=== PATIENT | female | born 1955 | race Caucasian/White ===

== ENCOUNTER → 2017-05-13 16:05 | Outpatient (CLI) | payer BC ==
[~2017-05-13 16:05] MED LIST: K-TAB10 MEQ PO; SYNTHROID25 MCG PO; TENORMIN50 MG PO; ZITHROMAX250 MG PO; ZOLOFT100 MG PO
[2017-05-17 10:41] VITALS: BMI 25.2
== END | disposition home or self-care (01) ==
LOC: D.CT 16:05
DX: R93.8 Abnormal findings on diagnostic imaging of other specified body structures (principal)

== ENCOUNTER 2017-05-17 09:30 | Inpatient (IN) | payer BC ==
[~2017-05-17] VITALS: Ht 172.7 cm; Wt 75.5 kg
--- NOTE | ~2017-05-17 | PRO ---
PATIENT:BRANDI MONTERO MEDICAL RECORD: [id number] : 55 LOCATION:D[facility] ADMISSION DATE: 05/17/17 PROCEDURE PERFORMED BY: LULU CARDONA MD DATE OF PROCEDURE: 05/18/2017 PROCEDURE: Fiberoptic bronchoscopy. INDICATION: Ms. Kirill Vences is a 61-year-old female. She was admitted with pneumonia with bilateral miliary shadows. Fiberoptic bronchoscopy was carried out to obtain the specimen for culture and sensitivity. PROCEDURE IN DETAIL: After obtaining the conscious sedation, the fiberoptic bronchoscope was easily passed through the mouth. The epiglottis was normal. The vocal cords were normal, moving equally on phonation. The pyriform sinuses were normal. The main trachea was normal. The pavithra was sharp. The right main bronchus subsegment to the right upper lobe, right lower lobe and right middle lobe within normal range. No endobronchial lesion was seen. The left main bronchus subsegment to the left upper lobe lingula and left lower lobe within normal range. No endobronchial lesion was seen. There was no yellowish secretion. No endobronchial lesion was seen bilaterally. Specimen washing was obtained and sent for routine culture and sensitivity, AFB and fungus, and cytology. TRANSINT:[id number] Voice Confirmation ID: [id number] DOCUMENT ID: [id number] LULU CARDONA MD CC: RAISSA MITTAL MD [id number] DICTATION DATE: 05/18/17 1122 CROSSING GUARD: 05/18/17 1135 ADM IN [id number] [place] [address]
--- NOTE | ~2017-05-17 | CN ---
PATIENT NAME:BRANDI MONTERO MEDICAL RECORD: [id number] : 55 LOCATION:D[facility] ADMIT DATE: 05/17/17 ACCOUNT: [id number] CONSULTING PHYSICIAN: LULU CARDONA MD REFERRING PHYSICIAN: SIGIFREDO BARON MD DATE OF CONSULTATION: 05/17/2017 CONSULT REQUESTING PHYSICIAN: Sigifredo Baron MD. REASON FOR CONSULTATION: Miliary shadow and interstitial pneumonitis. HISTORY OF PRESENT ILLNESS: Ms. Roy is a 61-year-old female who is sick since January. She has a cough since then and when she has cough, she has a pleuritic type of chest pain on the right side. There is no wheezing. The cough is productive with very little sputum, mostly it is a dry cough. Denies any fever and chills. She has some fatigue. Her appetite is good. There is no weight loss. She does have some night sweats, which she correlate with her postmenopausal and it is not different than before. There is no hemoptysis. The patient denies any exposure to TB. She lived in [place], [place] in the 80s, but the patient does not recall any infection over there and she does not recall any abnormal chest x-ray in the past. REVIEW OF SYSTEMS: HEENT: There is no sinus congestion. CONSTITUTIONAL: She is fatigued. RESPIRATORY: As in history of present illness. CARDIOVASCULAR: Negative. GASTROINTESTINAL: Negative. GENITOURINARY: Negative. Other review of systems is negative. PAST MEDICAL HISTORY: 1. Hypothyroidism. 2. Depression. PAST SURGICAL HISTORY: Nonsignificant. ALLERGIES: There are no known drug allergies. PRESENT MEDICATIONS: She is on levothyroxine, Zoloft and atenolol. PERSONAL AND SOCIAL HISTORY: The patient did smoke for 15-16 years, more than 20 years ago. She is a nondrinker. FAMILY HISTORY: Noncontributory. PHYSICAL EXAMINATION: GENERAL: Now, the patient is lying comfortably in bed. She is not in acute distress. VITAL SIGNS: The blood pressure is 126/78, pulse is 68, respirations 16, temperature 97.9 and SPO2 is 96% on room air. HEENT: Conjunctivae is pink. Sclerae nonicteric. NECK: Neck is supple. No JVD. No lymphadenopathy. No cervical or axillary lymphadenopathy. CHEST: There are right-sided crackles. No wheezing. CONSULT REPORT [id number] BRANDI MONTERO HEART: Rhythm regular, normal sound, no murmur. ABDOMEN: Soft. Bowel sounds present. No hepatosplenomegaly. RECTAL: Deferred. EXTREMITIES: No cyanosis, no clubbing and no pedal edema. SKIN: The skin is warm, normal turgor. CENTRAL NERVOUS SYSTEM: The patient is awake and alert. There are no obvious cranial nerve abnormalities. The gait was not tested. IMAGING: CT scan of the chest, there are miliary shadows bilaterally. There is also increased interstitial marking. There is a small right pleural effusion. OTHER LABORATORY DATA: CBC: The WBC is 6.2, hemoglobin 13.9, hematocrit 40.1 and the platelet count 370. Chemistry: Sodium 136, potassium 3.9, chloride 101, BUN is 15 and creatinine 0.7. IMPRESSION: 1. Bilateral pneumonia, most likely atypical pneumonia with miliary shadows, rule out tuberculosis, rule out fungal infection, rule out sarcoidosis, rule out connective tissue disorder. 2. Chronic cough secondary to above. 3. Right-sided pleural effusion. 4. Pleurisy. 5. Ex-smoker. 6. Hypothyroidism. RECOMMENDATION: 1. Continue Zithromax and Rocephin. 2. I will check the fungal antibody panel. Check SHAI, rheumatoid factor, S-YANIV level, ANCA level, check the ESR, check a QuantiFERON gold test for the TB. 3. The PPD has been put and that will be followed. We will proceed with fiberoptic bronchoscopy tomorrow. Dr. Baron, thank you for involving me in the care of Ms. Roy. I will also consult Dr. Delores Meza. TRANSINT:[id number] Voice Confirmation ID: [id number] DOCUMENT ID: [id number] LULU CARDONA MD CC: [id number] DICTATION DATE: 05/17/171524 DEVOPS: 05/17/172019 ADM IN [place] [id number] [place] [address]
[2017-05-17] MEDS ORDERED: ZITHROMAX250 MG PO (10:33)
[2017-05-17] MEDS ORDERED: K-TAB10 MEQ PO (10:33)
[2017-05-17] MEDS ORDERED: SYNTHROID25 MCG PO (10:33)
[2017-05-17] MEDS ORDERED: TENORMIN50 MG PO (10:34)
[2017-05-17] MEDS ORDERED: ZOLOFT100 MG PO (10:34)
[2017-05-17 10:41] VITALS: BP 126/62; Ht 172.7 cm; Wt 75.5 kg
[2017-05-17 11:41] LABS: ALBUMIN 3.9 g/dL (3.4-5.0); ALKALINE PHOSPHATASE 170 U/L (46-116); ALT (SGPT) 33 U/L (10-68); CALC OSMOLALITY 272 mosm/kg (275-300); CALCIUM 9.4 mg/dL (8.5-10.1); CARBON DIOXIDE 21.5 mmol/L (21.0-32.0); CHLORIDE - SERUM 101 mmol/L (98-107); CREATININE - SERUM 0.7 mg/dL (0.6-1.3); GLUCOSE 93 mg/dL (74-106); POTASSIUM - SERUM 3.9 mmol/L (3.5-5.1); PROTEIN - SERUM 7.5 g/dL (6.4-8.2); SODIUM 136 mmol/L (136-145); UREA NITROGEN 15 mg/dL (7-18); eGFR NON AFRICAN AMERICAN 90 mL/min (90-120)
[2017-05-17 11:47] LABS: BASOPHILS 0.5 % (0-2); EOSINOPHILS 5.5 % (0-7); HEMATOCRIT 40.1 % (36.0-48.0); HEMOGLOBIN 13.9 g/dL (12-16); IMMATURE GRANULOCYTES 0.3 % (0-5); LYMPHOCYTES 37.2 % (15-50); MCH 31.7 pg (26.0-34.0); MCHC 34.7 g/dL (31.0-37.0); MCV 91.6 fL (80.0-100.0); MONOCYTES 9.4 % (2-11); NEUTROPHILS 47.1 % (40-80); PLATELET COUNT 370 10x3/uL (130-400); RBC 4.38 10x6/uL (4.00-5.40); WBC 6.2 10x3/uL (4.8-10.8)
[2017-05-17 12:01] LABS: APPEARANCE CLEAR (CLEAR); BILIRUBIN NEGATIVE (NEGATIVE); COLOR YELLOW (YELLOW); GLUCOSE NEGATIVE (NEGATIVE); KETONE NEGATIVE (NEGATIVE); LEUKOCYTE ESTERASE 1+ (NEGATIVE); NITRITE NEGATIVE (NEGATIVE); PROTEIN NEGATIVE (NEGATIVE); UROBILINOGEN NORMAL (NORMAL)
[2017-05-17 12:03] LABS: BACTERIA FEW /hpf (NONE SEEN); EPITHELIAL CELLS 0-5 /hpf (0-5); MUCUS <1+ /lpf (NONE SEEN); WHITE CELLS - URINE 0-5 /hpf (0-5)
[2017-05-17 12:44] VITALS: BP 126/78
[2017-05-17 16:24] LABS: BASOPHILS 0.7 % (0-2); EOSINOPHILS 5.4 % (0-7); HEMATOCRIT 37.4 % (36.0-48.0); HEMOGLOBIN 12.9 g/dL (12-16); IMMATURE GRANULOCYTES 0.3 % (0-5); LYMPHOCYTES 36.5 % (15-50); MCH 31.9 pg (26.0-34.0); MCHC 34.5 g/dL (31.0-37.0); MCV 92.3 fL (80.0-100.0); MEAN PLATELET VOLUME 9.5 fL (7.4-10.4); NEUTROPHILS 46.1 % (40-80); PLATELET COUNT 314 10x3/uL (130-400); RBC 4.05 10x6/uL (4.00-5.40); RDW 11.9 % (11.5-14.5); WBC 6.9 10x3/uL (4.8-10.8)
[2017-05-17 16:28] VITALS: BP 128/69
[2017-05-17 16:57] LABS: APTT 34.7 SECONDS (22.8-39.4); INR 1.03 (0.85-1.17); PROTIME 13.3 SECONDS (11.6-15.0)
[2017-05-17 18:14] LABS: ERYTHROCYTE SEDIMENTATION RATE 15 mm/hr (0-30)
--- NOTE | 2017-05-17 18:50 | HP ---
PATIENT: BRANDI MONTERO MEDICAL RECORD: [id number] ACCOUNT: [id number] LOCATION:D.[facility] : 55 ADMISSION DATE: 05/17/17 HISTORY AND PHYSICAL EXAMINATION REASON FOR ADMISSION: Fatigue and pleuritic chest pain. HISTORY OF PRESENT ILLNESS: The patient is a 61-year-old female, who noticed approximately 4 months ago, onset of a sharp pain in her right lateral chest wall. She assumed it was pleurisy, had no other symptoms. This had lasted for 4 months. More recently, she had been somewhat fatigued and not short of breath, but if she coughs, she will have increasing pain. She finally came to the office last week. Exam there showed a normal chest exam except for tenderness along her right 9th and 10th costal ribs in the axillary line. A chest x-ray showed a diffuse biliary pattern, interstitial pneumonitis with some fluid in the right upper lobe. A CT scan was ordered of the chest confirming above findings. I spoke with Dr. Keenan and he recommended starting Zithromax, placing a PPD. She is weak and we cannot place a PPD for reading until today. Over the weekend, she has not felt any difference. She denies fever, productive cough, hemoptysis or diarrhea. She was direct admitted to the hospital today because of no improvement in symptoms after diagnostic bronchoscopy and treatment of atypical pneumonia. PAST MEDICAL HISTORY: Postmenopausal, 2 para 2, hypothyroidism, depression palpitations. PAST SURGICAL HISTORY: Negative. SOCIAL HISTORY: Occasional alcohol consumption. Denies current smoking; former smoker. Remarried to her previous . 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 FAMILY HISTORY: Her father was a dentist, he had hypertension. Mother at 63 of CHF and hypertension. Paternal grandfather with colon cancer and COPD, from [place]. Maternal grandfather with leukemia. PAST SURGICAL HISTORY: Negative. HOME MEDICATIONS: Levothyroxine 0.025 mg a.c. breakfast daily, atenolol 50 mg a day, sertraline 100 mg tablets 1-1/2 tablets daily. REVIEW OF SYSTEMS: CONSTITUTIONAL: No fever, fatigue, or weight change. HEENT: No recent visual change, sinus congestion, sore throat or hearing difficulty. RESPIRATORY: Denies SOB or cough, but says she has sharp pain in her right chest when she takes a deep breath or coughs. Denies wheezing or hemoptysis. CARDIAC: No exertional chest pain, claudication or edema. GASTROINTESTINAL: No nausea, vomiting, change in stools or blood per rectum. GENITOURINARY: No dysuria. GYNECOLOGICAL: No vaginal bleeding. 2. ENDOCRINE: Denies polyuria, polydipsia, heat or cold intolerance. NEUROLOGIC: No history of stroke, TIA or vascular headaches. INTEGUMENT: No rash or itching. PSYCHIATRIC: Admits to depression in the past, stable on meds. No history of HISTORY AND PHYSICAL [id number] KVNG SOLOMONBRANDI SAENZ suicidal thoughts. PHYSICAL EXAMINATION: VITAL SIGNS: Temperature 97.7 Fahrenheit orally, pulse 68 and regular, respirations are 16, blood pressure 126/70 with a sat 96% on room air. GENERAL: Alert and oriented. HEENT: Normocephalic. Eyes are clear. Oropharynx unremarkable. NECK: Supple, without bruits or masses. CHEST: Clear without wheeze or rales. She is acutely tender in the mid axillary line on the right ribs 9 and 10 to palpation. No crepitus or subQ emphysema is noted. BREASTS: Symmetrical. ABDOMEN: Soft and nontender. PELVIC: Deferred. RECTAL: Deferred. EXTREMITIES: No CC&E. INTEGUMENT: No rash or petechiae. LYMPHATIC SYSTEM: No adenopathy noted. LABORATORY DATA: White count 6200, H&H of 13.9 and 40.1, platelet count is 370,000. Urine shows 10-25 red cells, 1+ leukocyte esterase, few bacteria. BMP is normal. Alkaline phosphatase is elevated at 170, rest of liver function is normal. Office chest x-ray shows interstitial pneumonitis, appearance worse in right upper lobe. CT chest on May 13 showed miliary lung nodule pattern with more confluent consolidation in the right upper lobe. No lymphadenopathy is noted. Trace right effusion is noted. ASSESSMENT: This is a typical miliary community-acquired pneumonia, right rib pain, etiology unknown; elevated alkaline phosphatase, etiology unknown, may be bone related, family history of colon cancer, personal history of depression, recent diagnosis of hypothyroidism. PLAN: We will admit her to the hospital for pulmonary consultation, cultures of blood and sputum. A PPD was placed in her right forearm today in my office. Also, obtain mammograms. Further workup pending clinical course. TRANSINT:[id number] Voice Confirmation ID: [id number] DOCUMENT ID: [id number] RAISSA MITTAL MD at 1850 CC: [id number] DICTATION DATE: 05/17/17 1258 SENIOR ENVIRONMENTAL CONSULTANT: 05/17/17 1419 ADM IN [id number] [place] [address]
[2017-05-17 20:00] VITALS: BP 119/73
[2017-05-18 04:00] VITALS: BP 112/73
[2017-05-18 05:49] LABS: BASOPHILS 0.4 % (0-2); EOSINOPHILS 6.9 % (0-7); HEMATOCRIT 37.1 % (36.0-48.0); HEMOGLOBIN 12.7 g/dL (12-16); IMMATURE GRANULOCYTES 0.4 % (0-5); LYMPHOCYTES 40.8 % (15-50); MCH 31.5 pg (26.0-34.0); MCHC 34.2 g/dL (31.0-37.0); MCV 92.1 fL (80.0-100.0); MEAN PLATELET VOLUME 9.3 fL (7.4-10.4); MONOCYTES 10.2 % (2-11); NEUTROPHILS 41.3 % (40-80); PLATELET COUNT 305 10x3/uL (130-400); RBC 4.03 10x6/uL (4.00-5.40); WBC 5.4 10x3/uL (4.8-10.8)
[2017-05-18 07:02] LABS: T4 THYROXIN - FREE 1.08 ng/dL (0.76-1.46); THYROID STIMULATING HORMONE 3.57 uIU/mL (0.36-3.74)
[2017-05-18 08:19] VITALS: BP 108/70
[2017-05-18 10:17] LABS: ANA REFLEX - DIRECT Negative (Negative)
[2017-05-18 12:00] VITALS: BP 116/73
[2017-05-18 16:17] VITALS: BP 100/66
[2017-05-18 20:00] VITALS: BP 126/72
[2017-05-19 09:39] VITALS: BP 124/74
[2017-05-19 11:16] LABS: ANGIOTENSIN CONVERTING ENZYME 27 U/L (14-82)
[2017-05-19 12:57] VITALS: BP 130/80
[2017-05-19 16:12] LABS: ANCA - ANTIMYELOPEROXIDASE <9.0 U/mL (0.0-9.0); ANCA - ANTIPROTEINASE 3 <3.5 U/mL (0.0-3.5); ANCA - ATYPICAL <1:20 titer (Neg:<1:20); ANCA - CYTOPLASMIC <1:20 titer (Neg:<1:20); ANCA - PERINUCLEAR <1:20 titer (Neg:<1:20)
[2017-05-19 16:30] VITALS: BP 136/74
[2017-05-19 20:00] VITALS: BP 137/72
[2017-05-19 20:09] LABS: ACID FAST SMEAR Negative (()); AFB SPECIMEN PROCESSING Concentration (())
[2017-05-20] VITALS: BP 129/79
[2017-05-20 04:00] VITALS: BP 137/87
[2017-05-20 09:31] VITALS: BP 148/83
[2017-05-20 12:46] VITALS: BP 143/94
[2017-05-20 14:20] LABS: CRYPTOCOCCUS AG - SERUM Negative (Negative)
[2017-05-20 14:20] LABS: FUNGUS STAIN Final report (())
[2017-05-20 16:00] VITALS: BP 140/87
[2017-05-20 20:00] VITALS: BP 121/77
[2017-05-21 04:00] VITALS: BP 134/87
[2017-05-21 07:06] LABS: BASOPHILS 0.7 % (0-2); EOSINOPHILS 9.5 % (0-7); HEMATOCRIT 38.4 % (36.0-48.0); HEMOGLOBIN 12.8 g/dL (12-16); IMMATURE GRANULOCYTES 0.3 % (0-5); LYMPHOCYTES 38.5 % (15-50); MCH 31.1 pg (26.0-34.0); MCHC 33.3 g/dL (31.0-37.0); MCV 93.4 fL (80.0-100.0); MEAN PLATELET VOLUME 9.3 fL (7.4-10.4); MONOCYTES 11.4 % (2-11); NEUTROPHILS 39.6 % (40-80); PLATELET COUNT 366 10x3/uL (130-400); RBC 4.11 10x6/uL (4.00-5.40)
[2017-05-21 07:17] LABS: CALC OSMOLALITY 279 mosm/kg (275-300); CALCIUM 9.5 mg/dL (8.5-10.1); CARBON DIOXIDE 26.8 mmol/L (21.0-32.0); CHLORIDE - SERUM 106 mmol/L (98-107); CREATININE - SERUM 0.7 mg/dL (0.6-1.3); GLUCOSE 91 mg/dL (74-106); POTASSIUM - SERUM 4.2 mmol/L (3.5-5.1); SODIUM 140 mmol/L (136-145); UREA NITROGEN 14 mg/dL (7-18); eGFR NON AFRICAN AMERICAN 90 mL/min (90-120)
[2017-05-21 08:00] VITALS: BP 128/70
[2017-05-21] MEDS ORDERED: FLORAJEN3 CAPS460 MG PO (09:31)
[2017-05-21] MEDS ORDERED: HYDROCODON-ACE1 EAC7 PO (09:31)
[2017-05-21] MEDS ORDERED: DOXYCYCLINE HY100 M2 PO (09:32)
[2017-05-21 15:10] LABS: FUNGAL - ASP FLAVUS Negative (Neg:<1:1); FUNGAL - ASP NIGER Negative (Neg:<1:1); FUNGAL - ASPER FUMIGATUS Negative (Neg:<1:1)
[2017-05-23 13:13] LABS: LEGIONELLA ANTIGEN - URINE Negative (Negative)
== END 2017-05-21 12:45 | disposition home or self-care (01) | DRG 194 ==
LOC: D.MS 09:30
PROVIDERS: Internal Medicine Pulmonary Disease; Student in an Organized Health Care Education/Training Program; ADMIT Family Medicine
PROC: 0BB78ZX Excision of Left Main Bronchus, Via Natural or Artificial Opening Endoscopic, Diagnostic (ICD-10-PCS; principal; 2017-05-17)
PROC: 0BB38ZX Excision of Right Main Bronchus, Via Natural or Artificial Opening Endoscopic, Diagnostic (ICD-10-PCS; 2017-05-17)
DX: J18.9 Pneumonia, unspecified organism (principal); J90 Pleural effusion, not elsewhere classified; E03.9 Hypothyroidism, unspecified; F32.9 Major depressive disorder, single episode, unspecified; Z87.891 Personal history of nicotine dependence; R31.9 Hematuria, unspecified

== ENCOUNTER → 2017-05-25 16:44 | Outpatient (CLI) | payer BC ==
[2017-05-17 10:41] VITALS: BMI 25.2
[~2017-05-25 16:44] MED LIST changes: +DOXYCYCLINE HY100 M2 PO; +FLORAJEN3 CAPS460 MG PO; +HYDROCODON-ACE1 EAC7 PO
== END | disposition home or self-care (01) ==
LOC: D.RAD 16:44
DX: J18.9 Pneumonia, unspecified organism (principal)

== ENCOUNTER 2017-06-10 07:31 | Day surgery (SDC) | payer BC ==
[2017-06-10 09:37] LABS: HEMATOCRIT 38.1 % (36.0-48.0); HEMOGLOBIN 13.1 g/dL (12-16); MCH 31.2 pg (26.0-34.0); MCHC 34.4 g/dL (31.0-37.0); MCV 90.7 fL (80.0-100.0); MEAN PLATELET VOLUME 9.7 fL (7.4-10.4); RBC 4.2 10x6/uL (4.00-5.40); RDW 11.7 % (11.5-14.5); WBC 4.7 10x3/uL (4.8-10.8)
[2017-06-10 10:05] VITALS: BMI 24.3
--- NOTE | 2017-06-10 12:23 | NUR ---
1219 BALLOON DILATION TO 54 SINHALA.
--- NOTE | 2017-06-10 13:02 | NUR ---
1250 BACK FROM EGD DILATION. RESP EVEN AND NONLABORED. ALERT AND TALKATIVE,C/L IN REACH.
--- NOTE | 2017-06-10 13:50 | NUR ---
IV DC WITH CATHER TIP INTACT
--- NOTE | 2017-06-13 16:05 | OP ---
PATIENT NAME: BRANDI MONTERO MEDICAL RECORD: [id number] :55 LOCATION:D.OPS ADMISSION DATE: SURGEON: AMANDA SALAZAR MD DATE OF OPERATION: 06/10/2017 PREOPERATIVE DIAGNOSES: 1. Nausea and vomiting. 2. Weight loss. 3. Gastroesophageal reflux. 4. Dysphagia. POSTOPERATIVE DIAGNOSES: 1. Nausea and vomiting. 2. Weight loss. 3. Gastroesophageal reflux. 4. Dysphagia. 5. Prepyloric ulcers. PROCEDURES: 1. Esophagogastroduodenoscopy with antral and distal esophageal biopsies. 2. Esophageal dilation with a through the catheter balloon to 54-Peruvian. SURGEON: Amanda Salazar MD KAYAK MAKER: None. BLOOD LOSS: Minimal. ANESTHESIA: IV sedation. The risks, possible complications, and alternatives to the procedure were explained to the patient. She elects to proceed. ENDOSCOPIC COURSE: The patient was conveyed to the endoscopy suite electively on 06/10/2017. IV sedation was induced by the anesthesia staff. A bite block was inserted. A gastroscope was inserted into the mouth. It was advanced easily into the hypopharynx. The esophagus was easily intubated as were the stomach and the duodenum. Upon withdrawal, retroflexed and angulus views were obtained. Antral biopsies were obtained. I then withdrew into the cardia of the stomach. I advanced it through the catheter balloon. I then sequentially dilated the entire length of the esophagus to 54-Peruvian. I then reintubated the patient's esophagus. Distal esophageal biopsies were obtained to rule out Diallo esophagus. The endoscope was then withdrawn under direct vision. The patient developed some laryngospasm postprocedurally. I will see her in the office in 2-3 weeks. I am going to dismiss her home on Nexium. TRANSINT:[id number] Voice Confirmation ID: [id number] DOCUMENT ID: [id number] OPERATIVE REPORT [id number] CALDERON RENETTAAMANDA VARGAS MD at 1605 CC: RAISSA MITTAL MD [id number] DICTATION DATE: 06/10/17 1230 FOREST AND CONSERVATION WORKER: 06/10/17 1328 [facility] 06/10/17 [facility] [address] [place] [address]
--- NOTE | 2017-06-13 16:05 | HP ---
PATIENT: BRANDI MONTERO MEDICAL RECORD: [id number] ACCOUNT: [id number] LOCATION:DiVolettaHEIDI : 55 ADMISSION DATE: 06/10/17 HISTORY AND PHYSICAL EXAMINATION CHIEF COMPLAINT: Here for endoscopy. HISTORY OF PRESENT ILLNESS: The patient has had nausea, vomiting, weight loss as well as gastroesophageal reflux. Since she cut gluten and milk out of her diet, her reflux has much improved. She gives some dysphagia type symptoms. I am going to plan for an esophageal dilation. The nausea and vomiting is only in the morning. This is a patient of Dr. Baron. HOME MEDICINES: Levothyroxine, potassium chloride, Zithromax as the patient is just getting over pneumonia, Tenormin, as well as Zoloft. FAMILY HISTORY: No known problems with sibling. SOCIAL HISTORY: Former tobacco use. PAST MEDICAL AND SURGICAL HISTORY: Bilateral carpal tunnel releases, hypertension, depression, angina, gastroesophageal reflux, hypothyroidism on replacement therapy. ALLERGIES: No known drug allergies. REVIEW OF SYSTEMS: Negative for CVA or seizures. Negative for renal disease or hepatitis. PHYSICAL EXAMINATION: GENERAL: The patient does not appear acutely ill. He does not appear chronically ill. The entire physical examination was performed in the presence of a female nurse. VITAL SIGNS: Reviewed. EARS: External ears appear normal. EYES: Extraocular movements are intact. NECK: Trachea is midline. CHEST: No intercostal retractions. PULMONARY: Nonlabored, no stridor. ABDOMEN: No peritonitis with movement. IMPRESSION: Nausea, vomiting, weight loss, and gastroesophageal reflux. PLAN: EGD with esophageal dilation. TRANSINT:[id number] Voice Confirmation ID: [id number] DOCUMENT ID: [id number] HISTORY AND PHYSICAL [id number] KVNG ELIANEGERRYBRANDI, AMANDA TELLO at 1605 CC: [id number] DICTATION DATE: 06/10/17 1210 CASTING MOLDER: 06/10/17 1234 [facility] 06/10/17 [address] [address] [place] [address]
[2017-07-05] MEDS ORDERED: NEXIUM40 MG PO (14:10)
[2017-08-02] MEDS ORDERED: FOLIC ACID1 MG PO (12:51)
[2017-08-03] MEDS ORDERED: ZOFRAN8 MG PO (07:56)
[2017-08-03] MEDS ORDERED: OXYCODONE HCL5 MG PO (10:11)
== END 2017-06-10 14:01 | disposition home or self-care (01) ==
LOC: D.OPS 07:31
PROVIDERS: Anesthesiology
DX: R11.2 Nausea with vomiting, unspecified (principal); R63.4 Abnormal weight loss; K21.9 Gastro-esophageal reflux disease without esophagitis; R13.10 Dysphagia, unspecified; K25.9 Gastric ulcer, unspecified as acute or chronic, without hemorrhage or perforation; I10 Essential (primary) hypertension; E03.9 Hypothyroidism, unspecified; I20.9 Angina pectoris, unspecified; Z01.812 Encounter for preprocedural laboratory examination

== ENCOUNTER 2017-07-06 05:00 | Inpatient (IN) | payer BC ==
[2017-07-05 15:17] LABS: HEMATOCRIT 36.2 % (36.0-48.0); HEMOGLOBIN 12.1 g/dL (12-16); MCH 30.3 pg (26.0-34.0); MCHC 33.4 g/dL (31.0-37.0); MCV 90.5 fL (80.0-100.0); MEAN PLATELET VOLUME 9.2 fL (7.4-10.4); RDW 11.8 % (11.5-14.5); WBC 7.4 10x3/uL (4.8-10.8)
[2017-07-05 15:26] LABS: APPEARANCE CLEAR (CLEAR); BILIRUBIN NEGATIVE (NEGATIVE); COLOR YELLOW (YELLOW); GLUCOSE NEGATIVE (NEGATIVE); KETONE NEGATIVE (NEGATIVE); NITRITE NEGATIVE (NEGATIVE); PROTEIN NEGATIVE (NEGATIVE); UROBILINOGEN NORMAL (NORMAL)
[2017-07-05 15:35] LABS: APTT 28.1 SECONDS (22.8-39.4); INR 0.99 (0.85-1.17)
[2017-07-05 15:48] LABS: ALBUMIN 3.5 g/dL (3.4-5.0); ALKALINE PHOSPHATASE 301 U/L (46-116); ALT (SGPT) 22 U/L (10-68); BILIRUBIN - TOTAL 0.33 mg/dL (0.2-1.3); CALC OSMOLALITY 275 mosm/kg (275-300); CALCIUM 8.9 mg/dL (8.5-10.1); CARBON DIOXIDE 24.2 mmol/L (21.0-32.0); CHLORIDE - SERUM 103 mmol/L (98-107); CREATININE - SERUM 0.7 mg/dL (0.6-1.3); GLUCOSE 92 mg/dL (74-106); POTASSIUM - SERUM 3.9 mmol/L (3.5-5.1); PROTEIN - SERUM 6.7 g/dL (6.4-8.2); SODIUM 138 mmol/L (136-145); UREA NITROGEN 13 mg/dL (7-18); eGFR NON AFRICAN AMERICAN 90 mL/min (90-120)
[2017-07-06] VITALS (53 sets, daily range): BP systolic 72–138; BP diastolic 39–96; BMI 23.9; BMI 26.8
[~2017-07-06 05:00] MED LIST changes: +NEXIUM40 MG PO
--- NOTE | 2017-07-06 10:30 | NUR ---
REC'D PT FROM OR, HOSPITAL STAFF AT THE BEDSIDE. LEFT RADIAL A-LINE, WRIST PROTECTOR INTACT, GOOD WAVE FORM. RIGHT SUBCLAVIAN CVL WITH FLUIDS INFUSING, SEE FLOW SHEET. RIGHT CHEST INCISION, CHEST TUBE TO 20CM SUCTION WITH BLOODY DRAINAGE, DRESSING CDI. GARIBAY CATHETER FREE OF KINKS TO GRAVITY WITH CLEAR YELLOW URINE RETURN. SHIFT ASSESSMENT COMPLETED, SEE FLOW SHEET. WILL CONTINUE TO MONITOR PT.
--- NOTE | 2017-07-06 10:45 | NUR ---
DR. MARKS AT THE BEDSIDE SPEAKING WITH FAMILY, ALL QUESTIONS ANSWERED, VSS, WILL CONTINUE TO MONITOR PT.
--- NOTE | 2017-07-06 11:18 | NUR ---
PT FAMILY AT THE BEDSIDE, ALL QUESTIONS ANSWERED, VSS, WILL CONTINUE TO MONITOR PT.
--- NOTE | 2017-07-06 11:30 | NUR ---
EPIDRUAL CHECKED, IN PLACE, 318 CC REMAINING IN EPIDURAL
--- NOTE | 2017-07-06 12:30 | NUR ---
EPIDURAL INTACT, NO SIGNS OF LEAKING, 311ML LEFT IN EPIDURAL
--- NOTE | 2017-07-06 13:12 | NUR ---
DR. MITTAL AT THE BEDSIDE, SPEAKING WITH FAMILY, ALL QUESTIONS ANSWERED, VSS, WILL CONTINUE TO MONITOR PT.
--- NOTE | 2017-07-06 13:30 | NUR ---
EPIDURAL INTACT, 304ML LEFT IN EPIDURAL
--- NOTE | 2017-07-06 14:30 | NUR ---
EPIDURAL INTACT, 297ML REMAINING IN EPIDURAL, WILL CONTINUE TO MONITOR PT.
--- NOTE | 2017-07-06 15:30 | NUR ---
EPIDURAL INTACT, 290ML REMAINING, WILL CONTINUE TO MONITOR PT.
--- NOTE | 2017-07-06 16:30 | NUR ---
EPIDURAL IN TACT, 283 ML REMAINING, WILL CONTINUE TO MONITOR PT.
--- NOTE | 2017-07-06 17:17 | NUR ---
PTS FAMILY AT THE BEDSIDE, ALL QUESTIONS ANSWERED, VSS, WILL CONTINUE TO MONITOR PT.
--- NOTE | 2017-07-06 17:30 | NUR ---
EPIDURAL INTACT, 271ML REMAINING, WILL CONTINUE TO MONITOR PT.
--- NOTE | 2017-07-06 19:30 | NUR ---
REC'D TO CARE, MOBILE HEALTH VEHICLE OPERATOR PER FLOWSHEET. PT AWAKE AND ORIENTED TO SITUATION. VSS. IVFS INFUSING TO R DLSC, DSG C/D/I - SEE FLOWSHEET, WILL TITRATE GTTS PER MD ORDER. LUNGS CTA. CM - NSR. R LATERAL CT, DSG INTACT, SEROUS DRAINAGE NOTED - TO 20CM SXN, NO AIR LEAK, LIGHT BLOODY DRAINAGE IN TUBE. CRITICORE GARIBAY PATENT. EPIDURAL LINE C/D/I, INFUSING AT 7ML/HR. PT REPORTS ADEQUATE PAIN RELIEF, ONLY C/O R SHOULDER DISCOMFORT. WARM PACK PROVIDED AND PT REPORTED RELIEF. AIR OVERLAY IN USE. ALARMS ON AND C/L IN REACH. ICE CHIPS AT BS.
--- NOTE | 2017-07-06 20:05 | NUR ---
SISTER AT BS VISITING. UPDATE GIVEN AND QUESTIONS ANSWERED.
--- NOTE | 2017-07-06 21:55 | NUR ---
CONT Q1H TURN, C&DB. PT COOPERATIVE, GOOD EFFORT, SPLINTING CHEST WITH PILLOW. ALARMS ON AND C/L IN REACH.
--- NOTE | 2017-07-06 23:29 | NUR ---
ABGS DONE. PT SAT UP IN BED WITH N/V. SMALL AMT EMESIS. ADMIN PRN ZOFRAN. PT REPORTED "FEELING BETTER" WITHIN A FEW MINUTES. ORAL CARE PROVIDED. PT LYING BACK DOWN NOW. ALARMS ON AND C/L IN REACH.
[2017-07-07] VITALS (94 sets, daily range): BP systolic 85–143; BP diastolic 35–74; BMI 24.4
--- NOTE | 2017-07-07 00:14 | NUR ---
REPOSITIONED UP IN BED, GOOD COUGH, NO NAUSEA AT THIS TIME.
--- NOTE | 2017-07-07 01:00 | NUR ---
URINE OUTPUT DECREASED AT THIS TIME. CVP 3. PLASMALYTE RUNNING AT 30 ML/HR. WILL CONTINUE TO MONITOR CLOSELY FOR CHANGES
--- NOTE | 2017-07-07 03:00 | NUR ---
REASSESSMENT PER FLOWSHEET, NO ACUTE CHANGES. PT AWAKENS EASILY, COOPERATIVE. VSS. WEANING KEYSHAWN TOLERATED. ALARMS ON AND C/L IN REACH.
--- NOTE | 2017-07-07 04:15 | NUR ---
WARM PACK TO R SHOULDER AREA PER PT REQUEST. FRESH ICE CHIPS AT BS. VSS.
--- NOTE | 2017-07-07 04:55 | NUR ---
ABGS RESULTED, WNL. PT REPOSITIONED UP IN BED TO R SIDE. GOOD COUGH. NO C/O AT THIS TIME.
[2017-07-07 06:31] LABS: HEMATOCRIT 32.5 % (36.0-48.0); HEMOGLOBIN 10.8 g/dL (12-16); MCH 30.1 pg (26.0-34.0); MCHC 33.2 g/dL (31.0-37.0); MCV 90.5 fL (80.0-100.0); MEAN PLATELET VOLUME 9.1 fL (7.4-10.4); RBC 3.59 10x6/uL (4.00-5.40); RDW 11.7 % (11.5-14.5)
[2017-07-07 07:04] LABS: ALBUMIN 2.7 g/dL (3.4-5.0); ALKALINE PHOSPHATASE 213 U/L (46-116); ALT (SGPT) 18 U/L (10-68); CALC OSMOLALITY 278 mosm/kg (275-300); CALCIUM 8.5 mg/dL (8.5-10.1); CARBON DIOXIDE 24.7 mmol/L (21.0-32.0); CHLORIDE - SERUM 106 mmol/L (98-107); GLUCOSE 110 mg/dL (74-106); POTASSIUM - SERUM 3.6 mmol/L (3.5-5.1); PROTEIN - SERUM 5.8 g/dL (6.4-8.2); SODIUM 139 mmol/L (136-145); UREA NITROGEN 13 mg/dL (7-18)
[2017-07-07 07:07] LABS: CREATININE - SERUM 0.5 mg/dL (0.6-1.3); eGFR NON AFRICAN AMERICAN > 90 mL/min (90-120)
--- NOTE | 2017-07-07 09:14 | NUR ---
0700 AM ASSESSMENT DOCUMENTED PER FLOWSHEET. PATIENT AWAKE AND ALERT. ALL VITALS WNL. RIGHT CHEST TUBE DRAINING WITH NO AIR LEAK. WILL CONTINUE TO TITRATE DRIPS NEEDED TO MAINTAIN SBP. PATIENT C/O PAIN IN RIGHT SHOULDER, STATES LEVEL 2/10. HEAT PACK APPLIED. WILL MONITOR FOR EFFECTIVENESS.
--- NOTE | 2017-07-07 09:17 | NUR ---
2264 DR. MARKS AT BEDSIDE WITH DR. REDDY. DISCUSSED R SHOULDER PAIN. DR. REDDY TO ORDER MEDICATION TO AID IN SHOULDER PAIN.
--- NOTE | 2017-07-07 14:07 | NUR ---
1100 REASSESSMENT DOCUMENTED PER FLOWSHEET, FAMILY AT SIDE.
--- NOTE | 2017-07-07 14:09 | NUR ---
1200 SITTING UP IN BED EATING LUNCH, NO C/O NAUSEA. 1300 SYSTOLIC BP BEGINNING TO SLOWLY TREND DOWN. ALBERT WITH DR. MARKS CONTACTED. V/O GIVEN TO TURN OFF DOPAMINE COMPLETELY AND HAVE ANESTHESIA TURN DOWN BASAL RATE ON EPIDURAL. DR. REDDY AT BEDSIDE, BASAL RATE TURNED DOWN FROM 7 TO 5. WILL MONITOR BP CLOSELY. 1410 COMPLETE BED BATH GIVEN, LINENS CHANGED. HAIR WASHED AND TEETH BRUSHED. SYSTOLIC BP REMAINS WITHIN PARAMETER.
--- NOTE | 2017-07-07 15:34 | NUR ---
1500 REASSESSMENT DOCUMENTED PER FLOWSHEET, ALL VITALS WNL. FAMILY AT SIDE.
--- NOTE | 2017-07-07 15:59 | HP ---
PATIENT: BRANDI MONTERO MEDICAL RECORD: [id number] ACCOUNT: [id number] LOCATION:[facility]05 : 55 ADMISSION DATE: 07/06/17 HISTORY AND PHYSICAL EXAMINATION NameBRANDI JACKSON (62yo, F) ID# [id number]. Date/Time07/01/2017 01:[id number] 1955Service Dept.NPP_[facility] ClinicProviderEDJAQUAN MARKS MDInsuranceMed Primary: [place]) Insurance # : [id number] Policy/Group # : [id number] PCP : BHUMI MITTAL Referring Provider Name : BHUMI MITTAL Employer Name : [employer] Prescription: [employer] - This member could not be found in the payer's files. Please verify coverage and all member demographic information. Chief Complaint Lung mass Patient's Care Team Primary Care Provider (): BHUMI MITTAL: [address] [place] [phone], , Referring Provider (): BHUMI MITTAL: [address] [place] [phone], , Patient's Pharmacies [id number] (ERX): [phone] [facility] [id number], , Vitals BP:100/60 sitting R arm 07/01/2017 01:01 pm 100/70 sitting L arm 07/01/2017 01:02 pmHR:80R/R 07/01/2017 01:02 pmHt:5 ft 8 in 07/01/2017 12:58 pmWt:155 lbs 07/01/2017 01:00 pmBMI:23.6 07/01/2017 01:00 pmAllergies Reviewed Allergies NKDAMedications Reviewed Medications atenolol 50 mg tablet start 01/20/2017, stop filledSara Beckwithlevothyroxine 25 mcg tablet Take 1 tablet(s) every day by oral route.06/23/17 enteredKathy WilsonNexIUM 40 mg capsule,delayed release Take 1 capsule(s) every day by oral route.06/27/17 enteredSara Beckwithsertraline 50 mg tablet Take 3 tablet(s) every day by oral route.06/27/17 enteredSara BeckwithVaccines Reviewed Vaccines Vaccine TypeDateAmt.RouteSiteLot #Mfr.Exp. DateDate on VISVIS GivenVaccinatorOtherTST-PPD cnrxsnlrolz41/05/170.1 [id number] Reviewed Problems Lung mass - Onset: 07/01/2017 Pleurisy - Onset: 05/14/2017 Acute interstitial pneumonia - Onset: 05/14/2017 Interstitial pneumonia - Onset: 06/23/2017 Acid reflux - Onset: 06/08/2017 Idiopathic interstitial pneumonia - Onset: 05/25/2017 HISTORY AND PHYSICAL [id number] BRANDI MONTERO Family History Discussed Family History Mother- Alcoholism ( age: 62)Father- Methicillin resistant Staphylococcus aureus infection (onset age: 80) ( age: 89)Maternal Grandfather- Pulmonary emphysema ( age: 65)Maternal Grandmother- Alcoholism ( age: 66)Social History Discussed Social History General Occupation: [employer] Marital status: Exercise level: Occasional Smoking Status: Former smoker Alcohol intake: Occasional Caffeine intake: Occasional Surgical History Reviewed Surgical History 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 HPI Dyspnea Reported by patient. Quality: dyspnea Onset/Timing: daily Context: with activity Associated Symptoms: hoarseness Notes: "dry cough" interstitial lung disease ROS Patient reports snoring but reports no sore throat, no bleeding gums, no dry mouth, no mouth ulcers, no oral abnormalities, and no teeth problems. She reports cough and shortness of breath but reports no wheezing and no coughing up blood. She reports vomiting, change in appetite, and nausea but reports no abdominal pain, no diarrhea, not vomiting blood, and no constipation. She reports no fever, no night sweats, no significant weight gain, no significant weight loss, and no exercise intolerance. She reports no dry eyes, no irritation, and no vision change. She reports no difficulty hearing and no ear pain. She reports no frequent nosebleeds and no nose/sinus problems. She reports no jugular vein distension and no swollen glands. She reports no chest pain, no arm pain on exertion, no s h ortness of breath when walking, no shortness of breath when lying down, no palpitations, and no known heart murmur. She reports no incontinence, no difficulty urinating, no hematuria, and no increased frequency. She reports no muscle aches, no muscle weak n ess, no arthralgias/joint pain, no back pain, and no swelling in the extremities. She reports no abnormal mole, no jaundice, and no rashes. She reports no loss of consciousness, no weakness, no numbness, no seizures, no dizziness, and no headaches. She re p orts no depression, no sleep disturbances, feeling safe in relationship, and no alcohol abuse. She reports no fatigue. She reports no swollen HISTORY AND PHYSICAL [id number] [place] glands and no bruising. She reports no runny nose, no sinus pressure, no itching, no hives, and no frequent sneez ing. ROS as noted in the HPI Physical Exam Patient is a 62-year-old female. Constitutional: General Appearance well nourished and developed and healthy-appearing. Level of Distress NAD. Ambulation ambulating normally. Cardiovascular: Apical Impulse not d isplaced or no thrill. Heart Auscultation normal s1 and s2; no murmurs, rubs, or gallops; and RRR. Arterial Pulses no abdominal aorta bruits, femoral bruits, or popliteal bruits and 2+ bilateral, carotid 2+ bilateral, femoral 2+ bilateral, popliteal 2+ bi lateral, and dorsalis pedis 2+ bilateral. Edema no edema or varicosities. Lungs: Repiratory Effort no dyspnea. Percussion no hyperresonance or dullness or flatness. Auscultation no wheezing, rhonchi, or rales / crackles and good air movement, CTA except as noted, and decreased breath sounds (in the bases bilaterally). Abdomen: Bowl Sounds normal. Inspection and Palpation no tenderness, guarding, masses, or rebound tenderness and soft and non-distended. Liver non-tender and no hepatomegaly. Spleen non-tender and no splenomegaly. Hernia none palpable. Musculoskeletal System: Gait And Stance normal gait and stance. Digits and Nails normal nails and no cyanosis. Neurologic: Cranial Nerves grossly intact. Reflexes DTRs 2+ bilaterally throughout. Sensation grossly intact. Lymph Nodes: Lymph Nodes no cervical LAD, supraclavicular LAD, axillary LAD, or inguinal LAD. Eyes: Lids and Conjunctivae no discharge or pallor and non-injected. Pupils PERRLA. Cornea grossly intact. EOM EOMI. Lens clear. Sclera non-icteric. Neck: Neck no masses, enlarged lymph nodes, or carotid bruits and supple and trachea midline. Thyroid no enlargement or nodules and non-tender. Skin: Inspection and Palpation no rash, lesions, ulcers, jaundice, or abnormal nevi. Assessment / Plan interstitial lung disease 1. Acute interstitial pneumonia J84.114: Acute interstitial pneumonitis 2. Interstitial pneumonia J84.9: Interstitial pulmonary disease, unspecified Discussion Notes interstitial lung disease with a diagnosis. I have discussed her disease process with her in detail as well as the alternative methods of treatment. I have discussed video-assisted fluoroscopy and lung biopsy with the patient and her as well as the alternative meth ods of treatment we discussed the expected benefits and risk which included bleeding, infection, stroke, , and the imponderables. She HISTORY AND PHYSICAL [id number] BRANDI MONTERO understands all of the above and wishes to proceed with surgery. ELAYNE MARKS MD at 1559 CC: [id number] DICTATION DATE: 07/01/17 1300 COMMUNITY ENGAGEMENT COORDINATOR: FIONA 07/04/17 1124 ADM IN [place] [id number] [place] [id number]
--- NOTE | 2017-07-07 15:59 | OP ---
PATIENT NAME: BRANDI MONTERO MEDICAL RECORD: [id number] :55 [facility] ADMISSION DATE:07/06/17 SURGEON: ADDI MARKS MD DATE OF OPERATION: 07/06/2017 SURGEON: Addi Marks MD. ANESTHESIA: General endotracheal, Dr. Mccain. OPERATION PERFORMED: Video-assisted thoracoscopy and biopsy of the parietal pleura, the middle lobe times 2 and the lower lobe times 1. Cultures were taken for TB, fungus, aerobic. 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 INDICATION FOR OPERATION: Bilateral pulmonary infiltrates with negative workup. FINDINGS OF THE OPERATION: Upon placing the scope, the parietal pleura was examined. There were multiple nodules, several biopsies were taken. Frozen section returned malignancy. The upper lobe was extremely edematous and noncompliant. The middle and lower lobe had multiple lesions and were still compliant. Cultures were taken from tissue in the middle lobe times 2 and lower lobe times 1. Biopsies of each of these areas were also sent for histology. ESTIMATED BLOOD LOSS: Less than 5 cc. Pleural fluid was sent for culture and cytology. DESCRIPTION OF PROCEDURE: After informed consent, adequate preoperative medication and evaluation, the patient was brought to the operating room, placed in the supine position. After induction of general anesthesia and application of appropriate monitoring devices, the patient underwent placement of a double lumen tube with flexible fiberoptic bronchoscopy. The patient turned in a left lateral decubitus position, protecting the pressure points and neurological structures. The right chest was prepped and draped in a sterile field, utilizing Betadine scrub, alcohol and Betadine solution. A Betadine-impregnated drape was also used. An incision was made over the ninth interspace mid axillary line and a puncture was made and a port placed. The scope was then placed. The above findings were noted. A posterior port and anterior port were placed under direct vision. The pleural biopsies were taken and sent to pathology for frozen section, frozen section returned malignancy. Attention was then turned toward the anterior middle lobe. A biopsy of this area was taken and sent for cultures and histology. Attention was then turned toward the lower lobe. Utilizing Endo-WAYNE, another biopsy was taken and sent to pathology for culture and histology. The upper lobe was not biopsiable due to its noncompliant nature and difficulty with placing a WAYNE across the edge of the lobe. Attention was then turned toward the posterior middle lobe where there were multiple areas of disease. A biopsy of this area was taken and sent to pathology for cultures and histology. The chest was further examined and the fluid was sent for culture and cytology. The fluid was removed. A #32 chest tube was placed in the apex and connected to underwater seal and suction. The instrument counts and sponge counts were correct times 2. The lung was OPERATIVE REPORT [id number] BRANDI MONTERO reinflated and the anterior and posterior incisions closed utilizing 2-0 Vicryl and 5-0 subcuticular Monocryl on the skin. Sterile dressings were applied. The patient tolerated the procedure well and was transferred to the CV ICU in satisfactory condition. TRANSINT:[id number] Voice Confirmation ID: [id number] DOCUMENT ID: [id number] ADDI MARKS MD at 1559 CC: [id number] DICTATION DATE: 07/06/17 1008 NEUROLOGY DIRECTOR: 07/06/17 1152 ADM IN [facility] [address] [place] [address]
--- NOTE | 2017-07-07 16:05 | NUR ---
DRESSING TO RIGHT LATERAL CHEST TUBE CHANGED. 4X4, DRAIN SPONGES AND IODINE SWABS USED, COVERED WITH TEGADERM.
--- NOTE | 2017-07-07 16:13 | NUR ---
PATIENT C/O R SHOULDER PAIN AGAIN. CALLED [facility] TO CHANGE TORADOL RX TO Q6HP FROM Q8HP.
--- NOTE | 2017-07-07 19:00 | NUR ---
PT HAS HAD MULTIPLE LUNG BIOPSIES PERFORMED BY DR MARKS. ON 4L NC. SAT 95% AT THIS TIME. LUNG SOUNDS CLEAR IN UPPER LOBES DIMMINISHED OTHERWISE. FAMILY AT BEDSIDE DISCUSSEDIV DRIPS. WILL ATTEMPT TO TITRATE OFF BY END OF SHIFT.
--- NOTE | 2017-07-07 21:00 | NUR ---
2100 MEDS GIVEN. PROVIDED HEATING PAD FOR PT SHOULDER PAIN. WILL CONTINUE TO MONITOR
--- NOTE | 2017-07-07 23:00 | NUR ---
REASSESSMENT COMPLETED. SEE FLOWSHEET FOR FULL DETAILS. WILL CONTINUE TO MONITOR
[2017-07-08] VITALS (31 sets, daily range): BP systolic 111–136; BP diastolic 52–69
--- NOTE | 2017-07-08 03:00 | NUR ---
REASSESSMENT COMPLETED. SEE FLOWSHEET FOR FULL DETAILS. NO OTHER CHANGES IN STATUS AT THIS TIME. WILL CONTINUE TO MONITOR
--- NOTE | 2017-07-08 05:00 | NUR ---
THROUGHOUT SHIFT, HAVE BEEN ABLE TO TITRATE KEYSHAWN OFF. NO OTHER CHANGES IN STATUS AT THIS TIME. WILL CONTINUE TO MONITOR.
[2017-07-08 06:33] LABS: HEMOGLOBIN 9.5 g/dL (12-16); MCH 29.7 pg (26.0-34.0); MCHC 32.8 g/dL (31.0-37.0); MCV 90.6 fL (80.0-100.0); MEAN PLATELET VOLUME 9.1 fL (7.4-10.4); RBC 3.2 10x6/uL (4.00-5.40); RDW 11.6 % (11.5-14.5); WBC 6.2 10x3/uL (4.8-10.8)
[2017-07-08 06:43] LABS: ALBUMIN 2.2 g/dL (3.4-5.0); ALKALINE PHOSPHATASE 187 U/L (46-116); ALT (SGPT) 16 U/L (10-68); BILIRUBIN - TOTAL 0.64 mg/dL (0.2-1.3); CALC OSMOLALITY 276 mosm/kg (275-300); CALCIUM 8.3 mg/dL (8.5-10.1); CARBON DIOXIDE 28.6 mmol/L (21.0-32.0); CHLORIDE - SERUM 106 mmol/L (98-107); GLUCOSE 97 mg/dL (74-106); POTASSIUM - SERUM 3.5 mmol/L (3.5-5.1); PROTEIN - SERUM 5.3 g/dL (6.4-8.2); SODIUM 139 mmol/L (136-145); UREA NITROGEN 11 mg/dL (7-18); eGFR NON AFRICAN AMERICAN 90 mL/min (90-120)
[2017-07-08 06:51] LABS: CREATININE - SERUM 0.7 mg/dL (0.6-1.3)
--- NOTE | 2017-07-08 07:00 | NUR ---
ASSESSMENT COMPLETE PER FLOWSHEET.
--- NOTE | 2017-07-08 08:43 | CN ---
PATIENT NAME:BRANDI MONTERO MEDICAL RECORD: [id number] : 55 LOCATION:[facility] ADMIT DATE: 07/06/17 ACCOUNT: [id number] CONSULTING PHYSICIAN: RAISSA MITTAL MD REFERRING PHYSICIAN: ADDI SANTANA MD DATE OF CONSULTATION: 07/06/2017 MEDICAL CONSULTATION REASON FOR CONSULTATION: Postoperative hypotension. ADMITTING PHYSICIAN: Addi Santana MD HOSPITAL COURSE: A 62-year-old female with interstitial lung disease and right upper lobe miliary pneumonia pattern. Her outpatient workup included prior CT, bronchoscopy with biopsy and AFB and fungal smears are all within normal limits. Also AFB smears returned negative at [address] Santana saw the patient and admitted her today for open lung biopsy. She is now postoperative and after taking analgesics, her blood pressure has dropped 80 systolic. She is now receiving a fluid challenge. She is alert with no acute complaints other than mild pain. PAST MEDICAL HISTORY: Abnormal chest x-ray, interstitial pneumonia noted 05/2017 with negative workup, remote history of smoking, hypothyroidism, hypertension, depression. PAST SURGICAL HISTORY: Bilateral carpal tunnel release. ALLERGIES: None noted. HOME MEDICATIONS: Prilosec OTC 20 mg daily, sertraline 100 mg 1-1/2 tablets by mouth daily, potassium chloride 10 mEq p.o. b.i.d., levothyroxine 25 mcg p.o. daily, atenolol 50 mg daily. 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 She is , remote smoker, minimal alcohol consumption, and no illegal drugs. FAMILY HISTORY: Noncontributory. REVIEW OF SYSTEMS: GENERAL: She has had no weight change or fever. HEENT: No recent visual change, sinus congestion, or sore throat. RESPIRATORY: She has a dry nonproductive cough in the last 4 months. She has had pleurtic right-sided chest pain as well. CARDIAC: No exertional chest pain, claudication, or edema. GASTROINTESTINAL: She has had no nausea, no vomiting or change in stools or blood per rectum. GENITOURINARY: No incontinence. GYNECOLOGIC: No vaginal bleeding. ENDOCRINE: Denies polyuria, polydipsia, heat or cold intolerance. NEUROLOGIC: No history of stroke, TIA, or vascular headaches. INTEGUMENT: No rash or itching. PSYCHIATRIC: Denies depressed mood. PHYSICAL EXAMINATION: CONSULT REPORT [id number] BRANDI MONTERO VITAL SIGNS: Temperature is 96.8 Fahrenheit, pulse 78 and regular, respirations are 16, blood pressure 104/62, pulse ox 95%. GENERAL: The patient is alert and oriented. HEENT: Eyes are clear. NECK: Supple. CHEST: Chest wall shows surgical dressings from recent procedure. LUNGS: Show inspiratory crackles bilaterally, right greater than left. HEART: Regular without murmur. ABDOMEN: Soft and nontender. PELVIC: Deferred. EXTREMITIES: No CC&E. NEUROLOGICAL: Oriented times 3. Motor and sensory grossly intact. No localizing neurologic deficits. Gait was not tested. O2 sats 95%. LABORATORY DATA: H&H is 12 and 36.2 with a white count of 7400. BMP is normal. Urine is negative. Postop ABGs shows a pH of 7.32, CO2 of 44, pO2 of 86 on 4 liters. Preop chest x-ray showed advancing right upper lobe interstitial pneumonia pattern with extensive reticulonodular infiltrates. ASSESSMENT: 1. Postoperative hypotension responding to fluid bolus. 2. Reticulonodular infiltrates with concern for occult malignancy. 3. Hypertension, controlled. 4. Depression. 5. Hypothyroidism. PLAN: Monitor the patient's blood pressure closely in the CVICU. Await path report. I talked to the patient's as well as Dr. Santana concerning operative findings. TRANSINT:[id number] Voice Confirmation ID: [id number] DOCUMENT ID: [id number] RAISSA MITTAL MD at 0843 CC: [id number] DICTATION DATE: 07/06/171732 HOTEL BREAKFAST ATTENDANT: 07/06/171913 ADM IN [facility] [address] [place] [address]
--- NOTE | 2017-07-08 10:00 | NUR ---
VISITING WITH FAMILY NO CO AT TIME.
--- NOTE | 2017-07-08 12:00 | NUR ---
SITTING UP IN BED EATING LUNCH NO CO AT TIME. CONSUMED 75 PERCENT.
--- NOTE | 2017-07-08 15:00 | NUR ---
BATH GIVEN LINENS CHANGED, DRESSING APPLIED TO RIGHT CHEST TUBE SITE.
--- NOTE | 2017-07-08 17:00 | NUR ---
CONSUMED 75 PERCENT OF DINNER. FAMILY AT THE BEDSIDE.
--- NOTE | 2017-07-08 19:05 | NUR ---
JEAN-PIERRE STAPLETON AND SCD'S PLACED BACK ON AFTER HOUR BREAK GIVEN BY DAY SHIFT RN.
--- NOTE | 2017-07-08 19:15 | NUR ---
REPORT RECEIVED, SHIFT ASSESSMENT COMPLETE, SEE FLOWSHEET. A&O X4, RR EVEN AND NONLABORED, DIMINSHED LUNG SOUNDS IN LOWER LOBES. O2 93% ON 3L, GOOD EFFORT WITH DEEP BREATHING AND COUGHING. S1S2. NSR ON MONITOR. R LATERAL CT, DRESSING C/D/I, NO SUCTION, FREE OF KINKS. PERIPHERAL PULSES +2, BILATERAL. R SUBCLAVIAN DRESSING C/D/I, PLASMALYTE @ 30CC/HR. EPIDURAL IN MID-UPPER BACK FOR PAIN MANAGEMENT, DRESSING C/DI. L RADIAL A-LINE, DRESSING C/D/I, SKIN WARM, EXTREM PINK AND WITH GOOD SENSATION, GOOD WAVEFORM. VSS, DENIES NEED AT THIS TIME, WILL MONTIOR.
--- NOTE | 2017-07-08 20:40 | NUR ---
NIGHT MEDS GIVEN. PRN BENADRYL GIVEN FOR ITCHING.
--- NOTE | 2017-07-08 23:10 | NUR ---
REASSESSMENT COMPLETE. NO ACUTE CHANGES FROM PREVIOUS, SEE FLOWSHEET FOR COMPLETE DETAILS. DENIES PAIN OR NEEDS AT THIS TIME. VSS.
[2017-07-09] VITALS (44 sets, daily range): BP systolic 70–163; BP diastolic 34–97
--- NOTE | 2017-07-09 01:05 | NUR ---
AWAKENS TO VOICE, RESTING WELL. IS AND BREATHING EXERCISES COMPLETED WITH PATIENT. PULLED UP AND REPOSISTIONED IN BED. DENIES NEED, CL IN REACH.
--- NOTE | 2017-07-09 03:05 | NUR ---
REASSESSMENT COMPLETE, SEE FLOWSHEET. VSS.
--- NOTE | 2017-07-09 05:00 | NUR ---
PATIENT'S O2 SAT DROPPED TO 87%, MORNING ABG DRAWN. O2 CRITICAL LOW @ 49, PATIENT INCREASED TO 6L NC WITHOUT MUCH IMPROVEMENT. PLACED ON OXYMIZER @ 8L PER RT. WILL MONITOR. IS COMPLETED WITH PATIENT, RETURNED 750. PRODUCTIVE COUGH NOTED. LUNG SOUNDS CLEAR.
[2017-07-09 05:59] LABS: HEMATOCRIT 30.3 % (36.0-48.0); HEMOGLOBIN 10.1 g/dL (12-16); MCH 30.2 pg (26.0-34.0); MCHC 33.3 g/dL (31.0-37.0); MCV 90.7 fL (80.0-100.0); MEAN PLATELET VOLUME 9.1 fL (7.4-10.4); RBC 3.34 10x6/uL (4.00-5.40); RDW 11.7 % (11.5-14.5); WBC 6.4 10x3/uL (4.8-10.8)
[2017-07-09 06:03] LABS: ALBUMIN 2.1 g/dL (3.4-5.0); ALKALINE PHOSPHATASE 184 U/L (46-116); ALT (SGPT) 14 U/L (10-68); BILIRUBIN - TOTAL 0.33 mg/dL (0.2-1.3); CALC OSMOLALITY 276 mosm/kg (275-300); CALCIUM 8.3 mg/dL (8.5-10.1); CARBON DIOXIDE 28.4 mmol/L (21.0-32.0); CHLORIDE - SERUM 106 mmol/L (98-107); CREATININE - SERUM 0.6 mg/dL (0.6-1.3); GLUCOSE 96 mg/dL (74-106); POTASSIUM - SERUM 3.6 mmol/L (3.5-5.1); PROTEIN - SERUM 5.4 g/dL (6.4-8.2); SODIUM 138 mmol/L (136-145); eGFR NON AFRICAN AMERICAN > 90 mL/min (90-120)
[2017-07-09 06:04] LABS: UREA NITROGEN 15 mg/dL (7-18)
--- NOTE | 2017-07-09 06:10 | NUR ---
O2 SAT IMPROVED. WILL MONITOR.
--- NOTE | 2017-07-09 06:30 | NUR ---
DR MARKS UPDATED ON PATIENT, ORDERS RECEIVED.
--- NOTE | 2017-07-09 07:05 | NUR ---
DR NED LARRY FOR CONSULT.
--- NOTE | 2017-07-09 19:15 | NUR ---
SHIFT ASSESSMENT COMPLETE, SEE FLOWSHEET FOR COMPLETE DETAILS. PATIENT A&OX4, STATES SHE'S FEELING "OKAY". RR EVEN, NONLABORED, AND SHALLOW. ON 11L VIA OXYMIZER WITH O2 SAT STAYING AROUND 92%. DEEP BREATHING AND COUGHING DONE WITH GOOD EFFORT, UNPRODUCTIVE COUGH. PULLED [address] TO RIGHT CHEST DRAINING SEROUS FLUID, DRESSING C/D/I. NO KINKS NOTED. S1S2 NOTED WITH NSR ON MONITOR. BOWEL SOUNDS ACTIVE X4. CLEAR YELLOW URINE DRAINING VIA GARIBAY. LOW GRADE TEMP NOTED PER CRITICORE. PERIPHERAL PULSES +2, BILATERAL. EPIDURAL IN MID-UPPER BACK FOR PAIN MANAGEMENT, DRESSING C/D/I. R SUBCLAVIAN CL DRESSING C/D/I. KEYSHAWN GTT TITRATING FOR BP, PLASMALYTE @ 30CC/HR. JEAN-PIERRE'S AND SCD'S REMOVED FOR SKIN ASSESSMENT, NO ISSUES, REPLACED. DENIES NEED AT THIS TIME, VSS, CL IN REACH.
--- NOTE | 2017-07-09 20:50 | NUR ---
NIGHT MEDS GIVEN, DAUGHTER AT BEDSIDE.
--- NOTE | 2017-07-09 21:10 | NUR ---
SISTER CAME OUT OF ROOM TO TELL ME PATIENT WAS NAUSEATED AND DRY-HEAVING. PRN ZOFRAN GIVEN. PATIENT STATES RELEIF. TOLD ME IT HAS BEEN A DAILY THING FOR A COUPLE WEEKS. VSS, WILL MONITOR.
--- NOTE | 2017-07-09 22:30 | NUR ---
CHEST TUBE DRESSING SATURATED, DRESSING CHANGED WITH 4X4'S.
--- NOTE | 2017-07-09 23:15 | NUR ---
REASSESSMENT COMPLETE, NO MAJOR CHANGES, PATIENT REPORTING EASIER BREATHING. GOOD EFFORT WITH BREATHING EXERCISES. O2 SAT HAS IMPROVED TO MID 90'S. OFF KEYSHAWN GTT, VSS.CL IN REACH.
[2017-07-10] VITALS (35 sets, daily range): BP systolic 88–159; BP diastolic 42–80
--- NOTE | 2017-07-10 01:15 | NUR ---
RESTING WELL, DENIES COMPLAINTS. BREATHING EXERCISES COMPLETE, VSS, MAINTAINING GOOD O2 SAT.
--- NOTE | 2017-07-10 03:15 | NUR ---
REASSESSMENT COMPLETE, NO ACUTE CHANGES. ON OXYMIZER @ 10L, SAT > 92%, VSS, DENIES PAIN OR COMPLAINTS. CL IN REACH.
--- NOTE | 2017-07-10 04:05 | NUR ---
XRAY AT BEDSIDE, TOLERATED WELL. REQUESTS DRINK OF WATER, PROVIDED. VSS.
--- NOTE | 2017-07-10 05:38 | NUR ---
RESTING WITH EYES CLOSED, VSS. CL IN REACH.
[2017-07-10 06:25] LABS: BASOPHILS 0.3 % (0-2); EOSINOPHILS 8.8 % (0-7); HEMATOCRIT 29.9 % (36.0-48.0); IMMATURE GRANULOCYTES 0.3 % (0-5); LYMPHOCYTES 18.9 % (15-50); MCH 30.3 pg (26.0-34.0); MCHC 33.4 g/dL (31.0-37.0); MCV 90.6 fL (80.0-100.0); MEAN PLATELET VOLUME 9.2 fL (7.4-10.4); MONOCYTES 11.7 % (2-11); PLATELET COUNT 257 10x3/uL (130-400); RDW 11.6 % (11.5-14.5); WBC 6.4 10x3/uL (4.8-10.8)
[2017-07-10 06:47] LABS: ALBUMIN 2.1 g/dL (3.4-5.0); ALKALINE PHOSPHATASE 172 U/L (46-116); ALT (SGPT) 14 U/L (10-68); BILIRUBIN - TOTAL 0.45 mg/dL (0.2-1.3); CALC OSMOLALITY 274 mosm/kg (275-300); CALCIUM 8.4 mg/dL (8.5-10.1); CARBON DIOXIDE 32.2 mmol/L (21.0-32.0); CHLORIDE - SERUM 102 mmol/L (98-107); CREATININE - SERUM 0.6 mg/dL (0.6-1.3); GLUCOSE 97 mg/dL (74-106); MAGNESIUM - SERUM 1.7 mg/dL (1.8-2.4); PHOSPHOROUS 4.4 mg/dL (2.5-4.9); PRO BNP 863 pg/mL (0-125); PROTEIN - SERUM 5.5 g/dL (6.4-8.2); SODIUM 137 mmol/L (136-145); UREA NITROGEN 14 mg/dL (7-18); eGFR NON AFRICAN AMERICAN > 90 mL/min (90-120)
--- NOTE | 2017-07-10 19:30 | NUR ---
REC'D TO CARE, FLIGHT STEWARD PER FLOWSHEET. SISTER AT BS, LEAVING FOR THE NIGHT. VSS. PT REPORTS "ONLY PAIN IS R SHOULDER, BUT ITS NOT BAD". EPIDURAL IN PLACE - SEE FLOWSHEET. R LAT CHEST INCISION AND CT NOTED, DSGS C/D/I. CRITICORE GARIBAY PATENT AND DRANING CLEAR, YELLOW URINE. AIR OVERLAY IN USE. PT ASSISTS WITH TURNING. GOOD DB&C EFFORT. CT TO 20CM SXN, SEROUS DRAINAGE, NO AIR LEAK NOTED. IVFS INFUSING TO R DLSC, DSG C/D/I. PT DENIES NEEDS AT THIS TIME. ALARMS ON AND C/L IN REACH.
--- NOTE | 2017-07-10 21:06 | NUR ---
ADMIN PO MEDS PER MD ORDERS. PT UP IN BED TO R SIDE, GOOD COUGH. VSS.
--- NOTE | 2017-07-10 23:20 | NUR ---
REASSESSMENT PER FLOWSHEET, NO ACUTE CHANGES. R CT DSG C/D/I. VSS.
[2017-07-11] VITALS (46 sets, daily range): BP systolic 84–140; BP diastolic 43–83
--- NOTE | 2017-07-11 01:00 | NUR ---
REPOSITIONED UP IN BED TO R SIDE. GOOD COUGH. COOPERATIVE, DENIES NEEDS AT THIS TIME.
--- NOTE | 2017-07-11 02:38 | NUR ---
RT AT BS FOR RESP TX.
--- NOTE | 2017-07-11 03:05 | NUR ---
REASSESSMENT PER FLOWSHEET, NO ACUTE CHANGES. I.S. TO 750, GOOD COUGH. ENCOURAGED DEEPER BREATHING. ALARMS ON AND C/L IN REACH.
[2017-07-11 06:19] LABS: BASOPHILS 0.4 % (0-2); EOSINOPHILS 8.8 % (0-7); HEMATOCRIT 30.6 % (36.0-48.0); IMMATURE GRANULOCYTES 0.4 % (0-5); LYMPHOCYTES 20.9 % (15-50); MCH 29.8 pg (26.0-34.0); MCHC 32.7 g/dL (31.0-37.0); MCV 91.1 fL (80.0-100.0); MEAN PLATELET VOLUME 9.3 fL (7.4-10.4); MONOCYTES 10.4 % (2-11); NEUTROPHILS 59.1 % (40-80); PLATELET COUNT 263 10x3/uL (130-400); RBC 3.36 10x6/uL (4.00-5.40); RDW 11.6 % (11.5-14.5); WBC 7.1 10x3/uL (4.8-10.8)
[2017-07-11 06:43] LABS: CALC OSMOLALITY 277 mosm/kg (275-300); CALCIUM 8.7 mg/dL (8.5-10.1); CARBON DIOXIDE 31.7 mmol/L (21.0-32.0); CHLORIDE - SERUM 102 mmol/L (98-107); CREATININE - SERUM 0.6 mg/dL (0.6-1.3); GLUCOSE 101 mg/dL (74-106); MAGNESIUM - SERUM 1.9 mg/dL (1.8-2.4); PHOSPHOROUS 4.3 mg/dL (2.5-4.9); POTASSIUM - SERUM 3.8 mmol/L (3.5-5.1); SODIUM 138 mmol/L (136-145); eGFR NON AFRICAN AMERICAN > 90 mL/min (90-120)
[2017-07-11 06:45] LABS: UREA NITROGEN 18 mg/dL (7-18)
--- NOTE | 2017-07-11 11:07 | NUR ---
Nutrition Follow Up: Pt was asleep at the time of RD visit. No family present. Interview deferred. Pt is eating 22% meal avg on a regular diet. Wt loss noted. No BM. Labs reviewed. Meds noted including Lasix. Rec continue current diet. Rec consider an appetite stimulant. Will continue to provide selective menus and honor food preferences. RD following.
--- NOTE | 2017-07-11 13:10 | NUR ---
DR. MITTAL AT BEDSIDE. DISCUSSED PRELIMINARY PATH RESULTS WITH PT AND PT'S SISTER.
--- NOTE | 2017-07-11 13:15 | NUR ---
PT BECOMING HYPOTENSIVE POST DIURESIS. WILL RESTART KEYSHAWN DRIP PER MD ORDERS.
--- NOTE | 2017-07-11 19:30 | NUR ---
REC'D TO CARE, CRM DYNAMICS DEVELOPER PER FLOWSHEET. PT AWAKE, VISITING WITH SISTER. VSS. KEYSHAWN GTT WEANED OFF. IVFS INFUSING TO R DLSC, DSG C/D/I - SEE FLOWSHEET. R CT TO 20CM SXN, NO AIR LEAK, SEROUS DRAINAGE. R LAT INCISION, DSG C/D/I. EPIDURAL LINE INTACT, INFUSING AT 5ML/HR, PT REPORTS ADEQUATE PAIN RELIEF. AIR OVERLAY IN USE. ALARMS ON AND C/L IN REACH.
--- NOTE | 2017-07-11 21:05 | NUR ---
SPOKE WITH PT RE: BATH - PT REQUESTS BATH TOMORROW AM AFTER CT AND EPIDURAL D/C'D PLANNED.
--- NOTE | 2017-07-11 23:00 | NUR ---
REASSESSMENT PER FLOWSHEET, NO ACUTE CHANGES. PT AWAKENS EASILY, DENIES ITCHING AT THIS TIME. NO SIGN OF DISTESS. VSS.
[2017-07-12] VITALS (24 sets, daily range): BP systolic 105–141; BP diastolic 55–99
--- NOTE | 2017-07-12 01:59 | NUR ---
PT REPOSITIONED UP IN BED TO R SIDE. LINENS STRAIGHTEDED. GARIBAY CARE DONE. HEELS BRIDGED. GOOD COUGH NOTED. C/L IN REACH.
--- NOTE | 2017-07-12 03:13 | NUR ---
REASSESSMENT PER FLOWSHEET, NO ACUTE CHANGES. PT AWAKENS EASILY, NO SIGN OF DISTRESS. ALARMS ON AND C/L IN REACH.
[2017-07-12 06:32] LABS: BASOPHILS 0.6 % (0-2); EOSINOPHILS 10.5 % (0-7); HEMATOCRIT 31.6 % (36.0-48.0); HEMOGLOBIN 10.4 g/dL (12-16); IMMATURE GRANULOCYTES 0.4 % (0-5); LYMPHOCYTES 21.8 % (15-50); MCHC 32.9 g/dL (31.0-37.0); MCV 91.1 fL (80.0-100.0); MEAN PLATELET VOLUME 9.3 fL (7.4-10.4); NEUTROPHILS 51.7 % (40-80); PLATELET COUNT 292 10x3/uL (130-400); RBC 3.47 10x6/uL (4.00-5.40); RDW 11.6 % (11.5-14.5); WBC 6.9 10x3/uL (4.8-10.8)
[2017-07-12 06:48] LABS: CALC OSMOLALITY 274 mosm/kg (275-300); CALCIUM 8.9 mg/dL (8.5-10.1); CARBON DIOXIDE 30.9 mmol/L (21.0-32.0); CHLORIDE - SERUM 101 mmol/L (98-107); CREATININE - SERUM 0.7 mg/dL (0.6-1.3); GLUCOSE 100 mg/dL (74-106); POTASSIUM - SERUM 4.1 mmol/L (3.5-5.1); SODIUM 137 mmol/L (136-145); UREA NITROGEN 15 mg/dL (7-18); eGFR NON AFRICAN AMERICAN 90 mL/min (90-120)
--- NOTE | 2017-07-12 07:30 | NUR ---
REPORT RECIEVED FROM ELECTRICAL TIMING DEVICE CALIBRATOR NURSE. PT RESTING IN BED QUIETLY. NO S/SX OF ACUTE DISTRESS NOTED AT THIS TIME. FULL ASSESSMENT COMPLETE PER FLOWSHEET. CALL LIGHT IN REACH. BED IN LOW POSITION. WILL CONT TO ASSESS FOR CHANGES. PLAN OF CARE CONT'D.
--- NOTE | 2017-07-12 07:58 | NUR ---
PT C/O NAUSEA AND PAIN TO THE RIGHT SHOULDER. TORODOL AND ZOFRAN ADMINISTERED PER EMAR. WILL CONT TO ASSESS.
--- NOTE | 2017-07-12 08:32 | NUR ---
LATE ENTRY FOR 07/07/17 * Is the patient Alert and Oriented? Yes 0 * How many steps to enter\exit or inside your home? 2 0 * PCP Dr. Baron 0 * Pharmacy [facility] on [address] 0 * Preadmission Environment Home with Family 0 * ADLs Independent 0 * List name and contact numbers for known caregivers / representatives who currently or will assist patient after discharge: Real - Alfonso [phone] 0 * Additional services required to return to the preadmission environment? No 0 * Can the patient safely return to the preadmission environment? Yes 0 * Has this patient been hospitalized within the prior 30 days at any hospital? No LATE ENTRY FOR 07/07/17 Patient Name: BRANDI JACKSON Admission Status: Urgent Accout number: [id number] Admission Date: 07-06-2017 : 1955 Admission Diagnosis: Attending: ELAYNE MARKS Current LOS: 6 Planned Disposition: Home Primary Insurance: [employer] BLUE PPO Discharge Planning Comments: CM met with patient to assess dc plans/needs. Patient states she lives at home with her and was independent with all ADL's & IADL's. She was not using any DME and has not had home health services in the past. At dc, she will return home with her . No needs verbalized or identified at this time. CM will follow. Chemical Reclamation Equipment Operator: Shelly Toro
--- NOTE | 2017-07-12 09:30 | NUR ---
MORNING MEDICATIONS GIVEN PER EMAR.
--- NOTE | 2017-07-12 10:00 | NUR ---
DR. MARKS AT BEDSIDE TO PULL CT. SUPPLIES AT BEDSIDE.
--- NOTE | 2017-07-12 10:15 | NUR ---
EPIDURAL AND CT OUT. CT PULLED PER DR. MARKS. DRESSING PLACED OVER SITE. C/D/I. DR. CHENG REMOVED EPIDURAL. NO ISSUES NOTED UPON REMOVAL. WILL CONT TO ASSESS.
--- NOTE | 2017-07-12 11:30 | NUR ---
FULL BED BATH AND LINEN CHANGE PROVIDED. PT ASSISTED TO RECLINER WITH MIN ASSIST REQUIRED. CALL LIGHT IN REACH. PILLOWS ADJUSTED FOR COMFORT. CALL LIGHT IN REACH. DENIES FURTHER NEEDS. WILL CONT TO ASSESS.
--- NOTE | 2017-07-12 12:29 | NUR ---
MORPHINE KILN OPERATOR HELPER INFUSING. KILN OPERATOR HELPER DEVICE IN REACH.
--- NOTE | 2017-07-12 15:00 | NUR ---
REASSESSMENT COMPLETE PER FLOWSHEET. CALL LIGHT IN REACH. NO CHANGES NOTED AT THIS TIME.
--- NOTE | 2017-07-12 16:00 | NUR ---
PT TAKEN TO MRI VIA W/C.
--- NOTE | 2017-07-12 16:42 | EC ---
PATIENT:BRANDI MONTERO DATE OF SERVICE: 07/06/17 SEX: F MEDICAL RECORD: [id number] DATE OF : 55 LOCATION:[place] [address] AGE OF PATIENT: 62 ADMISSION DATE: 07/06/17 REFERRING PHYSICIAN: INTERPRETING PHYSICIAN: EGE SHETTY MD ECHOCARDIOGRAM REPORT ECHO CHARGES CLINICAL DIAGNOSIS: ECHOCARDIOGRAPHIC MEASUREMENTS (adult normal given) AC root (d.<3.7cm) cm LV Septum d (<1.2 cm> cm Valve Excursion cm LV Septum (systole) cm Left Atria (s.<4.0cm> cm LVPW d(<1.2cm) cm RV (d.<2.3cm) cm LVPW (sytole) cm LV diastole(<5.6CM) cm MV E-F(>70mm/sec) cm LV systole cm LVOT Diameter cm MV exc.(>10mm) cm Est.ejection fraction (50-75%) % Pericardial Effusion DOPPLER: LVIT cm/sec A cm/sec E cm/sec LA cm/sec RVSP mmHg LVOT cm/sec AOP1/2T m/s Asc. Ao cm/sec RVOT cm/sec RA cm/sec PA cm/sec AV Gradient Peak mmHg AV Mean mmHg AV Area cm MV Gradient Peak mmHg MV Mean mmHg MV Area cm COMMENTS: Lens Blocker: Advertising Space Clerk: HENRIETTA DATE OF SERVICE: 07/11/2017 PROCEDURE: Echocardiogram. FINDINGS: 1. Left ventricular chamber size is within normal limits. Left ventricular systolic function is mildly reduced, overall ejection fraction 40%. There is mild global hypokinesis throughout all segments with no discrete wall motion abnormalities present. 2. Left atrium, right atrium, and right ventricular chamber sizes are within ECHOCARDIOGRAM REPORT [id number] BRANDI MONTERO normal limits. 3. Valvular structures have normal structure and motion. 4. Doppler interrogation reveals no significant valvular insufficiency or stenosis. 5. No evidence of pericardial effusion or left ventricular thrombus. TRANSINT:[id number] Voice Confirmation ID: [id number] DOCUMENT ID: [id number] GEE SHETTY MD at 1642 CC: [id number] DICTATION DATE: 07/11/[address] MAINTENANCE TECHNICIAN: 07/11/17 1413 ADM IN [facility] [address] [facility] [address]
--- NOTE | 2017-07-12 18:15 | NUR ---
RT AT BEDSIDE. IS BEING COMPLETED PER PT. PULLING 1000. STRONG COUGH TRIGGERED. WILL CONT TO ENCOURAGE USE OF IS.
--- NOTE | 2017-07-12 19:30 | NUR ---
REC'D TO CARE, PT AWAKE AND ORIENTED. UP IN BED. VSS. O2 HFNC 5L, CM - NSR. LUNGS CTA, DIMINISHED BASES. R CHEST INCISIONS WITH DSGS NOTED. IVF INFUSING TO R DLSC, DSG C/D/I - SEE FLOWSHEET. PT USING MORPHINE SEWER, REPORTS ADEQUATE PAIN RELIEF. AIR OVERLAY IN USE. ALARMS ON AND C/L IN REACH.
--- NOTE | 2017-07-12 21:01 | NUR ---
UP IN BED, ADMIN PO MEDS PER MD ORDERS. DENIES OTHER NEEDS. NO VISITORS AT THIS TIME.
--- NOTE | 2017-07-12 23:20 | NUR ---
REASSESMENT PER FLOWSHEET, NO ACUTE CHANGES NOTED. PT AWAKEN EASILYL, DENIES NEEDS. USING MASTER CRAFTSMAN NEEDED. VSS. NO SIGN OF DISTRESS.
[2017-07-13] VITALS (24 sets, daily range): BP systolic 109–150; BP diastolic 56–91
--- NOTE | 2017-07-13 01:15 | NUR ---
RESTING QUIETLY, NO SIGN OF DISTRESS.
--- NOTE | 2017-07-13 02:00 | NUR ---
PT SAT UP IN BED, WITH IMMEDIATE N/V, EMESIS 200ML BROWN LIQUID. PRN ZOFRAN GIVEN. PT ASSISTED TO BR. VOIDED 300ML CLEAR, YELLOW URINE. UP TO SINK TO WASH HANDS AND BRUSH TEETH. BACK TO BED. DENIES NAUSEA NOW. ALARMS ON AND C/L IN REACH.
--- NOTE | 2017-07-13 02:55 | NUR ---
REASSESSMENT PER FLOWSHEET, NO ACUTE CHANGES. PT DENIES NAUSEA. VSS. NO SIGN OF DISTRESS. C/L IN REACH.
--- NOTE | 2017-07-13 05:00 | NUR ---
NO VISITORS, PT RESTING WITH EYES CLOSED, NO SIGN OF DISTRESS.
[2017-07-13 06:32] LABS: BASOPHILS 0.4 % (0-2); EOSINOPHILS 10.5 % (0-7); HEMATOCRIT 32.6 % (36.0-48.0); HEMOGLOBIN 10.7 g/dL (12-16); IMMATURE GRANULOCYTES 0.7 % (0-5); LYMPHOCYTES 18.8 % (15-50); MCH 29.9 pg (26.0-34.0); MCHC 32.8 g/dL (31.0-37.0); MCV 91.1 fL (80.0-100.0); MEAN PLATELET VOLUME 9.3 fL (7.4-10.4); MONOCYTES 11.6 % (2-11); PLATELET COUNT 326 10x3/uL (130-400); RBC 3.58 10x6/uL (4.00-5.40); RDW 11.5 % (11.5-14.5); WBC 7.6 10x3/uL (4.8-10.8)
[2017-07-13 06:43] LABS: CALC OSMOLALITY 278 mosm/kg (275-300); CARBON DIOXIDE 31.4 mmol/L (21.0-32.0); CHLORIDE - SERUM 102 mmol/L (98-107); CREATININE - SERUM 0.6 mg/dL (0.6-1.3); GLUCOSE 98 mg/dL (74-106); MAGNESIUM - SERUM 2.2 mg/dL (1.8-2.4); POTASSIUM - SERUM 4.5 mmol/L (3.5-5.1); SODIUM 139 mmol/L (136-145); UREA NITROGEN 16 mg/dL (7-18); eGFR NON AFRICAN AMERICAN > 90 mL/min (90-120)
--- NOTE | 2017-07-13 06:51 | NUR ---
AM LAB PENDING. PT UP TO BR. VOIDED 200ML HAZY PALE YELLOW URINE. AMY-CARE PER PT. THEN UP IN CHAIR.
--- NOTE | 2017-07-13 07:00 | NUR ---
REPORT RECIEVED FROM PLASTERING SUPERVISOR NURSE. PT RESTING IN CHIAR QUIETLY. NO S/SX OF ACUTE DISTRESS NOTED AT THIS TIME. CALL LIGHT IN REACH. WILL CONT PLAN OF CARE.
--- NOTE | 2017-07-13 09:00 | NUR ---
MORNING MEDICATIONS GIVEN PER EMAR. PT RESTING IN RECLINER. DENIES NEEDS AT THIS TIME. SISTER AT BEDISDE.
--- NOTE | 2017-07-13 11:00 | NUR ---
REASSESSEMENT COMPLETE. NO CHANEGES AT THIS TIME. WEANING O2 TOLERATED.
--- NOTE | 2017-07-13 11:53 | NUR ---
BUSINESS INSTRUCTOR CALLED AND TOLD TO CALL DR. SHETTY WITH RESULT ONCE ECHO IS COMPLETE.
--- NOTE | 2017-07-13 12:45 | NUR ---
WALKED 2000 FT WITH 02. TOLERATED WELL. VSS.
--- NOTE | 2017-07-13 15:00 | NUR ---
REASSESSMNET COMPLETE PER FLOWSHEET. NO CHANGES NOTED. WILL CONT TO ASSESS.
--- NOTE | 2017-07-13 18:00 | NUR ---
PT WALKED 500FT WITH 3L O2. NO ISSUES NOTED THROUGHOUT.
--- NOTE | 2017-07-13 19:30 | NUR ---
REPORT RECIEVED. ASSESSMENT COMPLETED. SEE FLOW SHEET FOR FURTHER DETAILS. PT POSITIONED FOR COMFORT. BED IN LOW POSITION CALL LIGHT IN REACH.
--- NOTE | 2017-07-13 21:00 | NUR ---
NO VISITORS AT THIS TIME. PT WAS GIVEN A PAIN PILL AND SHORTLY AFTER BECAME NAUSED. ZOFRAN WAS GIVEN TO HELP THE NAUSEA. CALL LIGHT IN REACH WILL CONTINUE TO MONITOR PT.
--- NOTE | 2017-07-13 23:00 | NUR ---
REASSESSENT COMPLETED. NO ACUTE CHANGES AT THIS TIME. PT REPOSITIONED FOR COMFORT WILL CONTINUE TO MONITOR PT.
[2017-07-14] VITALS (11 sets, daily range): BP systolic 107–154; BP diastolic 64–82
--- NOTE | 2017-07-14 01:00 | NUR ---
PT RESTING WITH EYES SHUT. VSS. WILL CONTINUE TO MONITOR PT.
--- NOTE | 2017-07-14 03:00 | NUR ---
REASSESSMENT COMPLETED PER FLOW SHEET. NO ACUTE CHANGES AT THIS TIME. VSS. NO SIGN OF DISTRESS. WILL CONTINUE TO MONITOR.
--- NOTE | 2017-07-14 05:19 | NUR ---
PT RESTING WITH NO SIGNS OF DISTRESS. WILL CONTINUE TO MONITOR.
[2017-07-14 06:06] LABS: BASOPHILS 0.4 % (0-2); EOSINOPHILS 10.7 % (0-7); HEMATOCRIT 32.5 % (36.0-48.0); HEMOGLOBIN 10.8 g/dL (12-16); IMMATURE GRANULOCYTES 0.5 % (0-5); LYMPHOCYTES 20.2 % (15-50); MCH 30.1 pg (26.0-34.0); MCHC 33.2 g/dL (31.0-37.0); MCV 90.5 fL (80.0-100.0); MEAN PLATELET VOLUME 9.2 fL (7.4-10.4); MONOCYTES 11.5 % (2-11); NEUTROPHILS 56.7 % (40-80); PLATELET COUNT 351 10x3/uL (130-400); RBC 3.59 10x6/uL (4.00-5.40); RDW 11.4 % (11.5-14.5); WBC 7.7 10x3/uL (4.8-10.8)
[2017-07-14 06:25] LABS: CALC OSMOLALITY 276 mosm/kg (275-300); CARBON DIOXIDE 28.6 mmol/L (21.0-32.0); CHLORIDE - SERUM 102 mmol/L (98-107); CREATININE - SERUM 0.6 mg/dL (0.6-1.3); GLUCOSE 96 mg/dL (74-106); POTASSIUM - SERUM 4.1 mmol/L (3.5-5.1); SODIUM 138 mmol/L (136-145); UREA NITROGEN 15 mg/dL (7-18); eGFR NON AFRICAN AMERICAN > 90 mL/min (90-120)
--- NOTE | 2017-07-14 07:43 | NUR ---
DR. MITTAL HERE IN TO SEE PATIENT, NEW ORDERS RECEIVED.
[2017-07-14] MEDS ORDERED: HYDROCODONE-APA1 TAB PO (08:56)
--- NOTE | 2017-07-14 09:00 | NUR ---
DR. MARKS HERE IN TO SEE PATIENT, NEW ORDERS RECEIVED.
--- NOTE | 2017-07-14 09:25 | NUR ---
NABEEL NOT IN PYXIS WILL CONTACT PHARMACY FOR MED.
--- NOTE | 2017-07-14 11:05 | NUR ---
DISCHARGE INSTRUCTION EXPLAINED TO PATIENT. COPY OF INSTURCTION GIVEN TO PATIENT, WITH PROPER SIGNATURES OBTAINED.
--- NOTE | 2017-07-14 11:11 | NUR ---
CENTRAL LINE DC'D WITH PATIENT IN SUPINE POSITION. PRESSURE DRESSING APPLIED AND HELD FOR 5 MINS. WILL CONTINUE TO MONITOR PATIENT FOR APPROX 20 MIN.
--- NOTE | 2017-07-14 12:20 | NUR ---
Portable O2 was delivered this morning by [facility]. Concentrator & nebulizer will be delivered to the home after discharge. HH referral faxed and called to Kamini with [facility]. They will see patient tomorrow.
[2017-08-02] MEDS ORDERED: FOLIC ACID1 MG PO (12:51)
[2017-08-03] MEDS ORDERED: ZOFRAN8 MG PO (07:56)
[2017-08-03] MEDS ORDERED: OXYCODONE HCL5 MG PO (10:11)
== END 2017-07-14 12:30 | disposition home health service (06) | DRG 166 ==
LOC: D.CVICU 05:00 → D.SDCHOLD 05:00 → D.CVICU 10:09 → D.SDCHOLD 10:09 → D.CVICU 07-14 10:27
PROVIDERS: Internal Medicine Pulmonary Disease; ADMIT Internal Medicine Cardiovascular Disease
PROC: 0BBF4ZX Excision of Right Lower Lung Lobe, Percutaneous Endoscopic Approach, Diagnostic (ICD-10-PCS; 2017-07-06)
PROC: 0BBD4ZX Excision of Right Middle Lung Lobe, Percutaneous Endoscopic Approach, Diagnostic (ICD-10-PCS; 2017-07-06)
PROC: 0BBN4ZX Excision of Right Pleura, Percutaneous Endoscopic Approach, Diagnostic (ICD-10-PCS; 2017-07-06)
PROC: 0B9N4ZX Drainage of Right Pleura, Percutaneous Endoscopic Approach, Diagnostic (ICD-10-PCS; principal; 2017-07-06 07:30)
DX: C34.91 Malignant neoplasm of unspecified part of right bronchus or lung (principal); J18.9 Pneumonia, unspecified organism; J96.01 Acute respiratory failure with hypoxia; J98.11 Atelectasis; C78.2 Secondary malignant neoplasm of pleura; E03.9 Hypothyroidism, unspecified; J44.9 Chronic obstructive pulmonary disease, unspecified; K21.9 Gastro-esophageal reflux disease without esophagitis; I10 Essential (primary) hypertension; F32.9 Major depressive disorder, single episode, unspecified; D64.9 Anemia, unspecified; E83.42 Hypomagnesemia

== ENCOUNTER → 2017-07-28 09:19 | Outpatient (CLI) | payer BC ==
[2017-07-07 10:47] VITALS: BMI 24.4
[~2017-07-28 09:19] MED LIST changes: +FOLIC ACID1 MG PO; +HYDROCODONE-APA1 TAB PO; +OXYCODONE HCL5 MG PO; +ZOFRAN8 MG PO
== END | disposition home or self-care (01) ==
LOC: D.RAD 09:19
DX: C34.90 Malignant neoplasm of unspecified part of unspecified bronchus or lung (principal)

== ENCOUNTER → 2017-08-03 07:01 | Day surgery (SDC) | payer BC ==
[~2017-08-03] VITALS: Ht 172.7 cm; Wt 68.0 kg
[2017-08-03 07:50] LABS: BASOPHILS 0.1 % (0-2); EOSINOPHILS 4.2 % (0-7); HEMATOCRIT 33.8 % (36.0-48.0); HEMOGLOBIN 11.2 g/dL (12-16); IMMATURE GRANULOCYTES 5.4 % (0-5); LYMPHOCYTES 9.9 % (15-50); MCHC 33.1 g/dL (31.0-37.0); MCV 90.6 fL (80.0-100.0); MEAN PLATELET VOLUME 9.5 fL (7.4-10.4); MONOCYTES 6.9 % (2-11); NEUTROPHILS 73.5 % (40-80); RBC 3.73 10x6/uL (4.00-5.40); RDW 12.6 % (11.5-14.5); WBC 19.9 10x3/uL (4.8-10.8)
[2017-08-03 07:51] VITALS: BP 123/80; Ht 172.7 cm; Wt 68.0 kg
[2017-08-03 07:51] LABS: PLATELET COUNT 222 10x3/uL (130-400)
[2017-08-03 08:04] LABS: INR 0.99 (0.85-1.17); PROTIME 12.9 SECONDS (11.6-15.0)
--- NOTE | 2017-08-03 14:08 | NUR ---
1140--PT COMPLAINS OF PAIN, RATES PAIN 5/10. NORCO 5/325MG X2 TABS GIVEN, WILL CONTINUE TO MONITOR. MOOSE COOPER 1215--PT VERBALIZES RELIEF FROM PAIN MED, RATES PAIN 3/10. IV DC'D, PT UP TO DRESS. MOOSE COOPER 1225--DISCHARGE INSTRUCTIONS GIVEN, PT VERBALIZES UNDERSTANDING. PT OFF UNIT VIA WC. MOOSE COOPER
== END | disposition home or self-care (01) ==
LOC: D.OPS 07:01 → D.PAN 09:30
PROVIDERS: Anesthesiology
DX: C34.90 Malignant neoplasm of unspecified part of unspecified bronchus or lung (principal); C79.9 Secondary malignant neoplasm of unspecified site; Z01.812 Encounter for preprocedural laboratory examination

== ENCOUNTER → 2017-10-18 10:35 | Outpatient (CLI) | payer BC ==
[2017-08-03 07:51] VITALS: BMI 22.8
== END | disposition home or self-care (01) ==
LOC: D.RAD 08:15
DX: C34.11 Malignant neoplasm of upper lobe, right bronchus or lung (principal); C79.51 Secondary malignant neoplasm of bone

== ENCOUNTER → 2017-11-15 11:38 | Outpatient (CLI) | payer BC ==
[2017-08-03 07:51] VITALS: BMI 22.8
== END | disposition home or self-care (01) ==
LOC: D.RAD 11:38
DX: C34.11 Malignant neoplasm of upper lobe, right bronchus or lung (principal); C79.51 Secondary malignant neoplasm of bone